=== PATIENT | male | born 1955 | race Caucasian/White ===

== ENCOUNTER 2019-05-01 14:29 | Emergency (ER) | payer OTHER ==
[~2019-05-01] VITALS: Ht 180.3 cm; Wt 106.6 kg
[2019-05-01] MEDS ORDERED: IBUPROFEN 800800 M1 PO (15:54)
[2019-05-01] MEDS ORDERED: CYCLOBENZAPRINE5 MG PO (15:54)
[2019-05-01 16:10] VITALS: BP 170/112
== END 2019-05-01 16:11 | disposition home or self-care (01) ==
LOC: M.ERS 14:29
DX: S13.8XXA Sprain of joints and ligaments of other parts of neck, initial encounter (principal); I10 Essential (primary) hypertension; E11.9 Type 2 diabetes mellitus without complications; E03.9 Hypothyroidism, unspecified; Z88.0 Allergy status to penicillin; Z88.8 Allergy status to other drugs, medicaments and biological substances; V89.2XXA Person injured in unspecified motor-vehicle accident, traffic, initial encounter; Y92.89 Other specified places as the place of occurrence of the external cause; Y93.89 Activity, other specified; Y99.8 Other external cause status

== ENCOUNTER 2019-06-06 22:09 | Inpatient (IN) | payer OTHER ==
[~2019-06-06] VITALS: Ht 180.3 cm; Wt 116.6 kg
[~2019-06-06 22:09] MED LIST: CYCLOBENZAPRINE5 MG PO; IBUPROFEN 800800 M1 PO
[2019-06-06 22:13] VITALS: BP 206/129
[2019-06-06] MEDS ORDERED: SYNTHROID25 MC1 PO (22:21)
[2019-06-06] MEDS ORDERED: SYNTHROID200 MCG PO (22:21)
[2019-06-06] MEDS ORDERED: VERAPAMIL E.R240 M1 PO (22:23)
[2019-06-06] MEDS ORDERED: MICARDIS 80 MG80 MG PO (22:23)
[2019-06-06] MEDS ORDERED: METFORMIN HCL500 MG PO (22:23)
[2019-06-06] MEDS ORDERED: ONGLYZA5 MG PO (22:24)
[2019-06-06 22:30] LABS: ABSOLUTE BASOPHILS 0.1 thou/uL (0.0-0.2); ABSOLUTE EOSINOPHILS 0.2 thou/uL (0.0-0.7); ABSOLUTE LYMPHOCYTES 2.2 thou/uL (0.8-5.3); ABSOLUTE MONOCYTES 0.5 thou/uL (0.0-1.2); ABSOLUTE NEUTROPHILS 4.5 thou/uL (1.6-8.1); EOSINOPHILS 2.9 %; HEMATOCRIT 49.7 % (42.0-52.0); HEMOGLOBIN 16.8 gm/dL (14.0-18.0); MCH 28.3 pg (26.0-34.0); MCHC 33.8 g/dL (28.0-37.0); MCV 83.7 fL (80.0-100.0); MONOCYTES 7.4 %; MPV 8.1 fl. (7.2-11.1); NUCLEATED RBCS 0 /100WBC; PLATELET COUNT* 174 thou/uL (150-400); POLYS 59.7 %; RBC 5.93 mil/uL (4.50-6.00); RDW-CV 14.6 % (10.5-14.5); WBC 7.5 thou/uL (4.0-11.0)
[2019-06-06 22:38] LABS: CALCIUM 9.6 mg/dL (8.5-10.1); CREATININE 1.2 mg/dL (0.6-1.3)
[2019-06-06 22:39] LABS: INR 1.1; PROTIME 10.9 Seconds (9.20-11.50)
[2019-06-06 22:49] LABS: TOTAL BILIRUBIN 0.3 mg/dL (<0.1-1.0); TOTAL PROTEIN 7.8 g/dL (6.4-8.2); TROPONIN-I LEVEL 0.44 ng/mL (<0.06)
[2019-06-06 23:16] LABS: URINE BILIRUBIN NEGATIVE (Negative); URINE BLOOD NEGATIVE (Negative); URINE CLARITY CLEAR; URINE COLOR YELLOW; URINE GLUCOSE-RANDOM 3+ (Negative); URINE KETONES NEGATIVE (Negative); URINE LEUKOCYTES-REFLEX NEGATIVE (Negative); URINE NITRITE-REFLEX NEGATIVE (Negative); URINE PROTEIN NEGATIVE (Negative); URINE UROBILINOGEN 0.2 E.U./dl (0.2-1.0)
[2019-06-07] VITALS (20 sets, daily range): BP systolic 143–177; BP diastolic 60–99
[2019-06-07] MEDS ORDERED: 24HR ALLERGY REL5 MG PO (01:13)
--- NOTE | 2019-06-07 08:31 | NUR ---
PT IS ABLE TO COMMUNICATE HIS NEEDS TO STAFF EFFECTIVELY. HE HAS DENIED THE NEED FOR ADDITIONAL PAIN MEDICATION UP TO 0700. NITRO PASTE PATCH IN PLACE PER ER MD. HEPARIN GTT MAINTAINED. HE HAS BEEN NPO, EXCEPT FOR SIPS WITH MEDS, FOR A CARDIOLOGY CONSULT LATER TODAY.
--- NOTE | 2019-06-07 08:48 | NUR ---
PT ON HEPARIN GTT, CARDIOLOGY WILL ASSESS FOR CATH.
--- NOTE | 2019-06-07 09:50 | EKG ---
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: BROOKE : 1955 Requested By: Mary Jimenez Order Number: [id number] MD: Dayo Kingsley Measurements Intervals [place] Rate: 89 P: 50 NH: 185 QRS: -28 QRSD: 103 T: 58 QT: 369 QTc: 449 Interpretive Statements Sinus rhythm Probable left atrial enlargement S1,S2,S3 pattern Abnormal R-wave progression, late transition Baseline wander in lead(s) II,aVF,V4,V5 No previous ECG available for comparison Electronically Signed On 06-07-2019 9:50:19 CDT by Dayo Kingsley [email or web address] <ELECTRONICALLY SIGNED> By: Dayo Kingsley MD, [facility] 06/07/19 0950 221 11 Dayo Kingsley MD, [facility] /EPI
--- NOTE | 2019-06-07 10:22 | CON ---
[address] [address] CONSULTATION Name: MILADY ALDANA Room: [address] IN ..#: [id number] Admission: 06/06/19 Attend Phys: Zhane Wright MD Discharge: Date of : 59 Report #: [id number] THIS REPORT FOR: //name// CC: Leidy Wright DATE OF SERVICE: 06/07/2019 INDICATION: Non-ST elevation myocardial infarction. HISTORY OF PRESENT ILLNESS: The patient is a very pleasant 64-year-old gentleman with no prior cardiac history. Last night at approximately 7:00, he started to have some left elbow pain. This gradually radiated to the middle of his chest and was described as a pressure sensation. The patient presented to the Emergency Room at approximately 10:30. By that time, the pain had started to alleviate. He was given sublingual nitroglycerin and placed on nitro paste. He had complete resolution of his pain after this. Initial EKG showed sinus rhythm without acute ST or T-wave abnormalities. The patient's initial troponin was 0.44 and then subsequently 0.52 and 1.33 consistent with non-ST elevation myocardial infarction. The patient denies any history of coronary artery disease. He has hypertension and diabetes. Lipid status is unknown. He quit smoking 20 years ago. His mother had coronary artery disease with stents placed. PAST MEDICAL/SURGICAL HISTORY: 1. History of hyperthyroidism status post thyroid ablation, now on thyroid replacement. 2. Hypertension. 3. Type 2 diabetes mellitus. 4. History of tonsillectomy remotely. 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 He does not smoke. He does not drink alcohol. ALLERGIES: None documented. CURRENT MEDICATIONS: Levothyroxine 225 mcg daily, metformin 500 mg b.i.d., Onglyza 5 mg daily, Micardis 80 mg daily, and verapamil ER 240 mg daily. PHYSICAL EXAMINATION: VITAL SIGNS: Stable. Blood pressure 156/88, pulse 80 and regular. GENERAL: This is a pleasant gentleman, in no distress. Mood and affect appropriate. HEENT: The patient is wearing glasses. Extra[place] [address] CONSULTATION Name: MILADY ALDANA Room: [address]#: [id number] Admission: 06/06/19 Attend Phys: Zhane Wright MD Discharge: Date of : 59 Report #: [id number] membranes are moist. NECK: Shows no jugular venous distention. There are no carotid bruits. CHEST: Reveals clear lung jimenes. CARDIOVASCULAR: Reveals a regular rhythm, with normal S1 and S2. I do not appreciate gallop or murmur. ABDOMEN: Reveals normal bowel sounds. The abdomen is soft and nontender. EXTREMITIES: Shows trace tibial edema. Pulses are palpable. SKIN: Dry. IMPRESSION AND RECOMMENDATIONS: 1. Non-ST elevation myocardial infarction. The patient will go for coronary angiography later today. Intervention will be pending the results of that study. Continue aspirin, nitro, and heparin at the time being. 2. Hypertension. The patient's blood pressure is mildly elevated at this time. We will adjust medications as needed for improved blood pressure control during this hospitalization. 3. Probable hyperlipidemia. Recommend starting atorvastatin 40 mg daily and fasting lipid profile in 2-3 months. 4. Type 2 diabetes mellitus per hospitalist. <ELECTRONICALLY SIGNED> By: Quinton Choudhary MD, FACC 06/07/19 1022 0941 [id number] Choudhary MD, FACC /nt
--- NOTE | 2019-06-07 11:05 | NUR ---
DR. URIBE GAVE OK FOR PT TO HAVE SHOWER AND EAT LUNCH PRIOR TO HEART CATH. CONSENT SIGNED. PROCEDURE PLANNED FOR 1529. WILL CONTINUE TO ASSESS.
[2019-06-07 12:18] LABS: CHOLESTEROL 196 mg/dL (<200); HDL CHOLESTEROL 35 mg/dL (>40); LDL CHOLESTEROL 125 mg/dL (<100); SERUM ASSESSMENT Clear; TC:HDL 5.6 Ratio (Not establshd); TRIGLYCERIDE 182 mg/dL (<150); VLDL 36 mg/dL (<40)
[2019-06-07 12:31] LABS: AMP/METHAMP Negative (Negative); BARBITURATES Negative (Negative); BENZODIAZEPINES Negative (Negative); COCAINE Negative (Negative); METHADONE Negative (Negative); OPIATES Negative (Negative); PCP Negative (Negative); THC Negative (Negative)
--- NOTE | 2019-06-07 14:45 | NUR ---
MET WITH PT TO DISCUSS HOME SITUAITON/DC PLANNING. PT LIVES WITH SPOUSE, WORKS OUTSIDE THE HOME AND IS INDEPENDENT AND ACTIVE. HE USES NO EQUIPMENT. PT ASKED ABOUT GETTING A BILL FROM HIS APR VISIT TO GIVE TO HIS EMPLOYER INSTEAD OF IT BEING WORK COMP. WAS ABLE TO GET ITEMIZED BILL FROM [employer] IN BILLING AND GAVE TO PT. NO OTHER DC NEEDS ID'D. WILL FOLLOW
--- NOTE | 2019-06-07 14:48 | NUR ---
PT C/O OF SLIGHT SOA AND 1/[address] PT ON 2L NC AND REASSESS. PT STATES THAT HE FEEL BETTER AND BREATHING EASIER, REFUSED NITRO SL AT THIS TIME.
--- NOTE | 2019-06-07 16:07 | NUR ---
PT OFF UNIT TO BLACK STUDIES PROFESSOR.
--- NOTE | 2019-06-07 18:00 | NUR ---
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 PT WILL RENMAIN ON BEDREST UNTIL 22OO TONIGHT.
--- NOTE | 2019-06-07 18:57 | NUR ---
PT'S SBP REMAIN HIGH. PT ADMITS TO BEING ANXIOUS. CONTACT DR. URIBE FOR ORDERS.
[2019-06-07 23:08] LABS: GLYCOHEMOGLOBIN (HGB A1C) 10.9 % (4.8-5.6)
[2019-06-08 02:06] LABS: GLYCOHEMOGLOBIN (HGB A1C) 11.1 % (4.8-5.6)
[2019-06-08 04:54] LABS: HEMATOCRIT 46.5 % (42.0-52.0); HEMOGLOBIN 15.4 gm/dL (14.0-18.0); MCH 27.6 pg (26.0-34.0); MCHC 33.1 g/dL (28.0-37.0); MCV 83.4 fL (80.0-100.0); MPV 8.4 fl. (7.2-11.1); RBC 5.58 mil/uL (4.50-6.00); RDW-CV 14.7 % (10.5-14.5); WBC 9.7 thou/uL (4.0-11.0)
[2019-06-08 05:28] LABS: ALBUMIN 3.4 g/dL (3.4-5.0); CALCIUM 8.7 mg/dL (8.5-10.1); CREATININE 0.9 mg/dL (0.6-1.3); MAGNESIUM 1.9 mg/dL (1.8-2.4); POTASSIUM 4.1 mmol/L (3.5-5.1); TOTAL BILIRUBIN 0.7 mg/dL (<0.1-1.0); TOTAL PROTEIN 6.6 g/dL (6.4-8.2)
[2019-06-08 08:00] VITALS: BP 143/85
[2019-06-08 10:30] VITALS: BP 143/85
--- NOTE | 2019-06-08 10:32 | NUR ---
PT IS ABLE TO COMMUNICATE HIS NEEDS TO STAFF EFFECTIVELY. CURRENT PAIN MEDICATION REGIMEN HAS BEEN ADEUATE FOR CONTROLLING HIS PAIN UP TO THIS TIME. RIGHT GROIN CATH SITE DRESSING IS C/D/I WITH NO OBSERVABLE HEMATOMA UP TILL 0700. LIKELY DISCHARGE TODAY.
--- NOTE | 2019-06-08 11:58 | NUR ---
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 VSS. NO COMPLAINT. ON RA. PT IS UP AD JOSIAH. RIGHT AC NS INFUSING AT 120 PER HOUR. RIGHT GROIN INSERTION SITE IS INTACT, SORE TO PRESSURE TOUCH. NO COMPLAINT OF CHEST PAIN. PT DOES COMPLAINT OF NAUSEA. ZOFRAN GIVEN. MORNING PO MEDICINE ADMINISTERED ORDERED. ACCUCHECK AC.HS. PT AWAITING FOR DISCHARGE FRO CARDIO AND HOSPITALIST POINT OF VIEW. WILL CONTINUE TO MONITOR PT
[2019-06-08 12:03] VITALS: BP 125/85
--- NOTE | 2019-06-08 12:48 | EKG ---
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: RT : 1955 Requested By: Dayo Kingsley Order Number: [id number] Reading MD: Dayo Kingsley Measurements Intervals [place] Rate: 80 P: 57 SD: 200 QRS: 51 QRSD: 105 T: 88 QT: 414 QTc: 478 Interpretive Statements Sinus rhythm Probable left atrial enlargement Borderline T abnormalities, lateral leads Borderline prolonged QT interval Compared to ECG 06/06/2019 22:12:55 T-wave abnormality now present Electronically Signed On 06-08-2019 12:48:37 CDT by Dayo Kingsley [email or web address] <ELECTRONICALLY SIGNED> By: Dayo Kingsley MD, [facility] 06/08/19 1248 6 6 Dayo Kingsley MD, [facility] /EPI
[2019-06-08] MEDS ORDERED: ATORVASTATIN CA20 MG PO (13:03)
[2019-06-08] MEDS ORDERED: CLOPIDOGREL75 MG PO (13:03)
[2019-06-08 14:01] VITALS: BP 143/85
[2019-06-08 14:17] VITALS: BP 143/85
[2019-06-08 14:28] VITALS: BP 143/85
--- NOTE | 2019-06-08 15:00 | NUR ---
Received requested from physician to discuss insurance coverage for insulin with pt. Pt has insurance. Pt said he has an appointment with his PCP on Tuesday and he will discuss whether or not he will take insulin.
--- NOTE | 2019-06-08 16:33 | NUR ---
PT IV LINE OUT , PRESSURE APPLIED, NO COMPLICATION. 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 THIS NURSE DISCUSSED DC INSTRUCTIONS WITH PATIENT. THIS NURSE WENT TO CHECK ON PT. PT LEFT HOSPITAL WITHOUT CALLING INSTRUCTED.
--- NOTE | 2019-06-14 13:19 | CARD ---
[address] [address] CARDIAC CATH REPORT Name: JOVANMILADY Марина Room: [address]#: [id number] Admission: 06/06/19 Attend Phys: Zhane Wright MD Discharge: 06/08/19 Date of : 59 Report #: [id number] THIS REPORT FOR: //name// APPROVED REPORT Study performed: 06/07/2019 16:01:19 Patient Details Patient Status: In-Patient Room #: The patient is a 64 year-old male Procedures Performed cath pci Indication Non-STEMI , Chest pain Risk Factors Arterial Hypertension, Hypercholesterolemia, Diabetes Admission/Lab Medications/Medications given during procedure Glycoprotein IllbIlla Inhibitors, Heparin Unfract. Procedure Narrative The patient was brought electively to the Cardiac Catheterization Laboratory and was prepped and draped in a sterile manner. The right femoral was infiltrated with 1% Lidocaine subcutaneous anesthesia. A 6 sheath was inserted into the right femoral artery. Coronary angiography was performed using coronary diagnostic catheters. The right coronary system was accessed and visualized with a Diagnostic catheter. The left coronary system was accessed and visualized with a Diagnostic catheter. The left ventricle was accessed and visualized with a Diagnostic catheter. Left ventricular/Aortic Valve gradient assessed via catheter pullback. Left ventriculogram was performed in OLIVARES projection. Pre-demployment femoral angiogram was performed . Closure device was deployed with a 6 Fr Angioseal. The patient tolerated the procedure well and there were no complications associated with the procedure. There was no hematoma. Coronary Angiography The patient's coronary anatomy is co- dominant. Diagnostic Cath Left Main Free of significant disease and bifurcates into the left [facility] [address] [place] [address] CARDIAC CATH REPORT Name: MILADY ALDANA Room: [address]#: [id number] Admission: 06/06/19 Attend Phys: Zhane Wright MD Discharge: 06/08/19 Date of : 59 Report #: [id number] anterior descending and circumflex coronary arteries. LAD Minimally plaqued in its proximal portion. There is approximately 50% distal LAD stenosis. Diagonal 1 Minimally plaqued proximally. The distal vessel appears to be diffusely diseased small caliber. Circumflex Minimally plaqued distally. OM1 Large branched vessel with a 90% narrowing proximally and a 90% narrowing in a large branch. OM2 Diffusely moderately plaqued up to 50% distally. Right Coronary 40% plaque proximally. Minimal plaquing in the mid and distal portion of the vessel. R PDA 50% narrowing in the mid vessel. RPLV Free of significant disease. Left Ventriculography The left ventricle is normal in size with normal contractility. The left ventricular ejection fraction is estimated to be 55-60%. Left ventricular wall motion abnormalities are not present. There is no mitral insufficiency. Hemodynamics The aortic pressure is 156/84 mmHg with a mean of 90 mmHg. The left ventricular pressure is 168/22 mmHg with a mean of mmHg. The left ventricular end diastolic pressure is 18 mmHg. Pullback from the left ventricle to the aorta revealed no gradient across the aortic valve. PCI Technique Lesion Anticoagulation was achieved with Heparin. bolus of iv aggrastat given Percutaneous coronary intervention was performed on the distal second obtuse marginal branch segmen at site of bifurcation. The lesion stenosis prior to intervention was 90% with PACO 3 flow. A xb4.0 Guide Catheter was used to engage the lm ostium. A bmw Interventional Guidewire was used to cross the lesion. BALLOON DILATION A Balloon catheter 2.5 x 8 mm was inserted and inflated up to 12atm for 15seconds. Repeat angiography revealed the following post-dilatation results: 30% stenosis. STENT DEPLOYMENT A drug-eluting stent 2.5 x 13 mm was inserted and inflated up to 14atm for 15seconds. Repeat angiography revealed the following post-stent deployment results: 0% stenosis. Final angiography reveals 0 % stenosis with PACO 3 [place] [address] CARDIAC CATH REPORT Name: MILADY ALDANA Room: [address] IN M.R.#: [id number] Admission: 06/06/19 Attend Phys: Zhane Wright MD Discharge: 06/08/19 Date of : 59 Report #: [id number] PCI Technique Lesion 2 Percutaneous Coronary Intervention was performed on the proximal second obtuse marginal branch segment. Percutaneous coronary intervention was performed on the proximal second obtuse marginal branch segment. The lesion stenosis prior to intervention was 90% with PACO 3 flow. A xb4.0 Guide Catheter was used to engage the lm ostium. A bmw Interventional Guidewire was used to cross the lesion. Balloon Dilation A Balloon catheter 2.5 x 8 mm was inserted and inflated up to 16atm for 15seconds. Repeat angiography revealed the following post-dilatation results: 40% stenosis. Stent Deployment A drug-eluting stent 3.0 x 13 mm was inserted and inflated up to 18atm for 15seconds. Repeat angiography revealed the following post-stent deployment results: 0% stenosis. Final angiography reveals 0 % stenosis with PACO 3 flow. Conclusion A. significant coronary disease involving the second obtuse marginal branch. B. normal LV systolic function. C. elevated left ventricular end-diastolic pressure. D. successful placement of 2 drug eluting stents in the second marginal branch Recommendations continue aggressive risk factor modification. Medications Administered Clopidogrel Diagnostic Cath Approved by: Quinton Choudhary MD Date/Time: 06/13/2019 17:27:01 <ELECTRONICALLY SIGNED> By: Dayo Kingsley MD, [facility] 06/14/19 1319 1319Dayo Kingsley MD, FAC /INF
[2019-06-27] MEDS ORDERED: ASPIR 8181 MG (09:53)
== END 2019-06-08 16:15 | disposition home or self-care (01) | DRG 246 ==
LOC: M.ERS 22:09 → M.TBA-ER 23:04 → M.2W 23:04
PROVIDERS: Emergency Medicine; Family Medicine; ADMIT Internal Medicine
DX: I21.4 Non-ST elevation (NSTEMI) myocardial infarction (principal); I50.33 Acute on chronic diastolic (congestive) heart failure; I11.0 Hypertensive heart disease with heart failure; E66.9 Obesity, unspecified; E11.65 Type 2 diabetes mellitus with hyperglycemia; E03.9 Hypothyroidism, unspecified; Z88.6 Allergy status to analgesic agent; Z88.0 Allergy status to penicillin; Z82.49 Family history of ischemic heart disease and other diseases of the circulatory system; Z87.891 Personal history of nicotine dependence; Z68.35 Body mass index [BMI] 35.0-35.9, adult